=== PATIENT | male | born 1965 | race Caucasian/White ===

== ENCOUNTER 2025-01-18 11:01 | Emergency (ER) | payer SELFPAY ==
[2025-01-18 11:07] VITALS: BP 188/116
[2025-01-18 11:26] VITALS: BP 165/99
[2025-01-18 12:00] VITALS: BP 167/99
--- NOTE | 2025-01-18 12:13 | ED.GENMED ---
History of Present Illness
<Darrion Penn, DO - Last Filed: 01/18/25 12:15>
General
Chief Complaint: Cardiac Symptoms
Time Seen by Provider: 01/18/25 12:00
<Melly Garcia MD, Resident - Last Filed: 01/18/25 13:49>
General
Source: patient
History of Present Illness
History of Present Illness:
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
He immediately felt some palpitations which self settled, denies falling or injuring himself. Denies any chest pain, palpitations at this time, apprehension, nausea, vomiting, body aches, dizziness, lightheadedness, headaches, or any other issues.
Patient is currently not on any blood thinners.
Past History
<Melly Garcia MD, Resident - Last Filed: 01/18/25 13:49>
Past History
ED Past Medical History: Arrthythmia (SVT, Atrial fib), GERD, HTN, Psychiatric (anxiety, Depression), Other (obesity, daily alcohol use) and Other (Pulmonary emboli)
ED Past Surgical History: None, Cardiac (Ablation for atrial fib) and Orthopedic (Left hand surgery, Rod knee surgery for Torn miniscus)
Social History
Tobacco: Non-smoker
Alcohol: Former (No alcohol in 2 years)
Drug: None
Personal:
Living: alone
Employment: Employed
Family History
Family History: Other (Noncontributory)
Phy Exam
<Melly Garcia MD, Resident - Last Filed: 01/18/25 13:49>
General Physical Exam
General Presentation: well appearing and no apparent distress
General age: appears stated age
General Skin: warm and dry
General Habitus: normal
General Mental: alert
General Hydration: appears well hydrated
ENT Exam
ENT Exam: pharynx normal and normocephalic
Cardiovascular Exam
Cardiovascular Exam: regular rate/rhythm, no gallop, no murmur and normal peripheral pulses
Pulmonary Exam
Pulmonary Exam: lungs clear, no respiratory distress, no rales and no crackles
Gastrointestinal Exam
Gastrointestinal Exam: normal bowel sounds, non tender and soft
Neurological Exam
Neurological Exam: alert, oriented x3, no motor deficits, no sensory deficits and speech normal
Musculoskeletal Exam
Musculoskeletal Exam: full ROM and no edema
Skin Exam
Skin Exam: normal color and warm/dry
Psychiatric Exam
Psychiatric Exam: normal mood/affect
Course
<Darrion Penn, DO - Last Filed: 01/18/25 12:15>
Orders/Labs/Results
Orders:
Orders
01/18/25 11:11
Electrocardiogram (*1) Urgent
Reason for Study: Palpitations
EKG- Treatment ONCE
01/18/25 12:35
CBC/With Diff [Complete Blood Count/With Diff] Urgent
CMP [Comprehensive Metabolic Panel] Urgent
Abnormal Lab Results
01/18/25
12:35
RBC 4.45 L 10^6/uL
(4.70-6.10)
MCV 97.8 H fL
(80.0-94.0)
MCH 35.5 H pg
(27.0-31.0)
Lymphocytes % 16.9 L %
(20.5-51.1)
Sodium 134 L mmol/L
(135-145)
Glucose 110 H mg/dl
(70-99)
01/18/25 12:35
01/18/25 12:35
Vital Signs
Initial and Last Documented VS:
Initial Vital Signs
Temp Pulse Resp BP Pulse Ox
98.5 F 83 16 188/116 98
01/18/25 11:07 01/18/25 11:07 01/18/25 11:07 01/18/25 11:07 01/18/25 11:07
Last Documented Vital Signs
Temp Pulse Resp BP Pulse Ox
98.5 F 76 16 167/99 98
01/18/25 11:07 01/18/25 12:45 01/18/25 12:45 01/18/25 12:00 01/18/25 12:45
<Melly Garcia MD, Resident - Last Filed: 01/18/25 13:49>
Orders/Labs/Results
Orders:
Orders
01/18/25 11:11
Electrocardiogram (*1) Urgent
Reason for Study: Palpitations
EKG- Treatment ONCE
01/18/25 12:35
CBC/With Diff [Complete Blood Count/With Diff] Urgent
CMP [Comprehensive Metabolic Panel] Urgent
Abnormal Lab Results
01/18/25
12:35
RBC 4.45 L 10^6/uL
(4.70-6.10)
MCV 97.8 H fL
(80.0-94.0)
MCH 35.5 H pg
(27.0-31.0)
Lymphocytes % 16.9 L %
(20.5-51.1)
Sodium 134 L mmol/L
(135-145)
Glucose 110 H mg/dl
(70-99)
01/18/25 12:35
01/18/25 12:35
Vital Signs
Initial and Last Documented VS:
Initial Vital Signs
Temp Pulse Resp BP Pulse Ox
98.5 F 83 16 188/116 98
01/18/25 11:07 01/18/25 11:07 01/18/25 11:07 01/18/25 11:07 01/18/25 11:07
Last Documented Vital Signs
Temp Pulse Resp BP Pulse Ox
98.5 F 76 16 167/99 98
01/18/25 11:07 01/18/25 12:45 01/18/25 12:45 01/18/25 12:00 01/18/25 12:45
<Melly Garcia MD, Resident - Last Filed: 01/18/25 13:49>
MDM/Problems Addressed
Differential Diagnosis Includes:
Cardiac arrhythmia secondary to electric shock
MDM/Problems Addressed:
CBC and CMP are fine with no alarming changes
EKG shows normal sinus rhythm with no acute ST-T changes
Cardiac monitoring shows stable normal sinus rhythm
Patient is stable for discharge, reassured the patient and advised to follow-up with primary care physician
<Melly Garcia MD, Resident - Last Filed: 01/18/25 13:49>
*Pulse Oximetry
SaO2: 98
Oxygen Mode of Delivery: Room air
Patient hypoxic: no
*Critical Care Note
Total Time (30-74mins, 75-104mins- exclusive of procedures): Not Applicable
ED Attending Note
<Darrion Penn, DO - Last Filed: 01/18/25 12:15>
ED Attending Note
Patient seen and examined by attending physician: Yes
I performed a history and physical exam of patient and discussed management with resident, I reviewed resident's note and agree with documented findings and plan of care.: Yes
ED Attending Note:
Seen with resident examined independently 59-year-old male shocked with alcohol current 110 bowl, no loss of consciousness did arcing trip to [facility], previously had A-fib had an ablation no longer on blood thinners feels fine now,
<Melly Garcia MD, Resident - Last Filed: 01/18/25 13:49>
-
Portions of this chart may have been created with voice recognition software.� Occasional wrong word or��sound alike� substitutions may have occurred due to the inherent limitations of voice recognition software.
Discharge Plan
Departure
Prescriptions:
No Action
fluoxetine 40 mg capsule
40 mg PO DAILY
amlodipine-benazepril 10-20 mg capsule
1 cap PO DAILY
acetaminophen 325 mg Tablet
650 mg PO Q4HPRN PRN (Reason: aches) Qty: 20 0RF
cephalexin 500 mg Capsule
1,000 mg PO QID 7 Days Qty: 56 0RF
Referrals:
Cornelius Guaman DO [Family Provider, Family Practice]
Interventions
Interventions:
*Risk Screen - Suicide Last Done: 01/18/25 11:07
*General Assessment Last Done: 01/18/25 11:07
ED- Pulmonary Assessment Last Done: 01/18/25 12:51
ED- Cardiac Assessment Last Done: 01/18/25 12:51
Discharge Date and Time
Print Language: SWEDISH
[2025-01-18 12:43] LABS: Hematocrit 43.5 % (39.0-52.0); Hemoglobin 15.8 g/dL (13.0-18.0); Mean Corp Hgb Conc. 36.3 g/dL (33.0-37.0); Mean Corpuscular Volume 97.8 fL (80.0-94.0); Platelet Count 152 10^3/uL (130-400); Red Cell Dist. Width 12.2 % (11.5-14.5)
[2025-01-18 12:44] LABS: Nucleated Red Blood Cells % 0 % (-)
[2025-01-18 12:54] LABS: ALT (SGPT) 35 U/L (0-50); AST (SGOT) 32 U/L (17-59); Albumin 3.9 g/dl (3.5-5.0); Alkaline Phosphatase 42 U/L (38-126); Blood Urea Nitrogen 12 mg/dl (9-20); Calcium 9.8 mg/dl (8.4-10.2); Carbon Dioxide 28 mmol/L (22-30); Chloride 103 mmol/L (98-107); Glucose 110 mg/dl (70-99); Potassium 4.4 mmol/L (3.5-5.1); Sodium 134 mmol/L (135-145); Total Protein 6.8 g/dl (6.3-8.2); eGFR > 60.00
== END 2025-01-18 14:36 | disposition home or self-care (01) ==
LOC: EMR 11:01
PROVIDERS: EMERGENCY PHYSICIAN Emergency Medicine; FAMILY PHYSICIAN Family Medicine
DX: T75.4XXA Electrocution, initial encounter (principal); W86.8XXA Exposure to other electric current, initial encounter; I48.91 Unspecified atrial fibrillation; I10 Essential (primary) hypertension; K21.9 Gastro-esophageal reflux disease without esophagitis; F41.9 Anxiety disorder, unspecified; F32.A Depression, unspecified; Z86.711 Personal history of pulmonary embolism
CPT/HCPCS: 99284; 80053; 85025; 93005